=== PATIENT | female | born 1980 | race Caucasian/White ===

== ENCOUNTER 2016-12-31 20:13 | Emergency (ER) | payer OTHER ==
[~2016-12-31] VITALS: Ht 157.5 cm; Wt 87.0 kg
[2016-12-31] MEDS ORDERED: ALBU8HFA IH (20:21)
[2016-12-31 20:23] VITALS: BP 115/72
[2016-12-31] MEDS ORDERED: KETOROLAC TROMETHAMINE 30 MG/ML VIAL IM ONE (21:45)
== END 2016-12-31 22:39 | disposition home or self-care (01) ==
LOC: EMS 20:14
DX: S93.602A Unspecified sprain of left foot, initial encounter (principal); X58.XXXA Exposure to other specified factors, initial encounter; Y93.89 Activity, other specified; Y92.89 Other specified places as the place of occurrence of the external cause; Y99.8 Other external cause status
CPT/HCPCS: 96372; 99283; J1885

== ENCOUNTER 2017-04-02 19:22 | Emergency (ER) | payer OTHER ==
[~2017-04-02] VITALS: Ht 165.1 cm; Wt 113.6 kg
[~2017-04-02 19:22] MED LIST: ALBU8HFA IH
[2017-04-02] MEDS ORDERED: BUSP10TA23 PO (19:52)
[2017-04-02 21:12] VITALS: BP 124/88
[2017-04-02] MEDS ORDERED: HYDROCODONE/ACETAMINOPHEN 10-325 MG TABLET PO ONE (21:15)
== END 2017-04-02 22:02 | disposition home or self-care (01) ==
LOC: EMS 19:24
DX: F41.9 Anxiety disorder, unspecified (principal); R20.0 Anesthesia of skin; R20.2 Paresthesia of skin
CPT/HCPCS: 93005; 99284

== ENCOUNTER 2017-06-08 09:19 | Emergency (ER) | payer OTHER ==
[~2017-06-08] VITALS: Ht 162.6 cm; Wt 117.2 kg
[~2017-06-08 09:19] MED LIST changes: +BUSP10TA23 PO
[2017-06-08] MEDS ORDERED: ALBUTEROL SULFATE 2.5 MG/0.5 ML NEB SOLUTION NEB ONE (10:15)
[2017-06-08] MEDS ORDERED: 0.9% SODIUM CHLORIDE 5 ML NEB SOLUTION NEB ONE (10:22)
[2017-06-08 11:02] VITALS: BP 130/98
== END 2017-06-08 11:04 | disposition home or self-care (01) ==
LOC: EMS 09:23
DX: J20.9 Acute bronchitis, unspecified (principal); F17.210 Nicotine dependence, cigarettes, uncomplicated; F41.9 Anxiety disorder, unspecified; R03.0 Elevated blood-pressure reading, without diagnosis of hypertension
CPT/HCPCS: 94640; 99283

== ENCOUNTER 2017-07-24 21:00 | Emergency (ER) | payer OTHER ==
[~2017-07-24] VITALS: Ht 165.1 cm; Wt 122.5 kg
[~2017-07-24 21:00] MED LIST changes: -BUSP10TA23 PO
[2017-07-24] MEDS ORDERED: [UNRECOGNIZED DRUG - CODE] PO (21:30)
[2017-07-24] MEDS ORDERED: BUSP7.5T6 PO (21:30)
[2017-07-24] MEDS ORDERED: LORazepam 0.5 MG TABLET PO ONE (22:30)
[2017-07-24 22:50] VITALS: BP 124/76
== END 2017-07-24 23:50 | disposition home or self-care (01) ==
LOC: EMS 21:01
DX: R22.0 Localized swelling, mass and lump, head (principal); F17.210 Nicotine dependence, cigarettes, uncomplicated; I10 Essential (primary) hypertension; Z88.5 Allergy status to narcotic agent
CPT/HCPCS: 99283